=== PATIENT | male | born 1965 | race Two or more races ===

== ENCOUNTER 2020-02-25 18:58 | Emergency (ER) | payer OTHER ==
[~2020-02-25] VITALS: Ht 182.9 cm; Wt 100.0 kg
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
[2020-02-25] MEDS ORDERED: ORPHENADRINE CITRATE 60 MG/2 ML VIAL. IM ONE (20:00)
[2020-02-25] MEDS ORDERED: KETOROLAC 30 MG/ML VIAL. IM ONE (20:00)
[2020-02-25] MEDS ORDERED: ORPH100T PO (20:01)
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
[2020-02-25 20:30] VITALS: BP 151/78
== END 2020-02-25 20:42 | disposition home or self-care (01) ==
LOC: ER 18:58
DX: S63.502A Unspecified sprain of left wrist, initial encounter (principal); S20.219A Contusion of unspecified front wall of thorax, initial encounter; R51 Headache; M25.522 Pain in left elbow; F17.200 Nicotine dependence, unspecified, uncomplicated; V43.42XA Person boarding or alighting a car injured in collision with other type car, initial encounter; Y92.488 Other paved roadways as the place of occurrence of the external cause; Y93.89 Activity, other specified; Y99.8 Other external cause status
CPT/HCPCS: 71046; 96372; 99284; J1885; J2360